=== PATIENT | female | born 1995 | race Caucasian/White ===

== ENCOUNTER 2024-03-22 13:53 | Outpatient (REF) | payer OTHER, SELFPAY ==
[2024-03-23 11:18] LABS: Bacterial Vaginosis PCR NEGATIVE (Negative); Candida Group PCR NOT DETECTED (Not Detect); Candida glab krusei PCR NOT DETECTED (Not Detect); Trichomonas vaginalis PCR NOT DETECTED (Not Detect)
[2024-03-23 11:47] LABS: CT PCR NOT DETECTED (Not Detect.); NG PCR NOT DETECTED (Not Detect.)
== END 2024-03-22 13:54 | disposition home or self-care (01) ==
LOC: HO.LAB 13:53
PROVIDERS: PCP Internal Medicine; Visit Provider Advanced Practice Midwife
DX: Z01.419 Encounter for gynecological examination (general) (routine) without abnormal findings (principal); N89.8 Other specified noninflammatory disorders of vagina; Z20.2 Contact with and (suspected) exposure to infections with a predominantly sexual mode of transmission
CPT/HCPCS: 0352U; 36415; 87491; 87591; 87625; 88175; 99385

== ENCOUNTER 2024-03-22 13:53 | Outpatient (AMB) | payer OTHER, SELFPAY ==
--- NOTE | 2024-03-22 14:10 | A.OFFVIS_ITS ---
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 Required: No Information Interpreted: clinical only Licensed Social Worker: Licensed Social Worker Present Allergies Sulfa (Sulfonamide Antibiotics) Allergy (Mild, Verified 03/22/24 14:12) Unknown Medication List - Last Reconciled 03/22/24 by Joyce Montez CNM budesonide-formoterol 80-4.5 mcg/actuation (Symbicort) 1 inh inhalation BID fluoxetine (Prozac) 20 mg PO DAILY montelukast (Singulair) 10 mg PO BEDTIME norgestimate-ethinyl estradiol 0.18/0.215/0.25 mg-25 mcg (Iia-Un-Rwlbxk) 1 tab PO DAILY quetiapine (Seroquel) 25 mg PO BEDTIME solifenacin 10 mg PO DAILY Is last menstrual period known: Yes Last menstrual period: 03/10/24 Do you need a note to return to daycare/school/sports/work: No HPI HPI New patient Annual: Details: 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 She moved from [place] a while back and is here to establish care she is 100% certain she never wants to have children she has dealt with a lot of issues with depression in her life and anxiety issues and she is in a good place now with her therapist psychiatrist and her meds have been stable for years but she is absolutely clear that she does not want to ever parent or bring these issues into a child's world and she is very very clear about this. She would like to remove all anxiety about getting and have permanent sterilization. She has considered all the alternatives and is 100% sure that she is not interested in any of them. She would like to find a doctor who would accommodate her needs for her. In the meantime she is on control pills and she is extremely fastidious about making sure she does not miss a pill and if she ever did get she would terminate it before became a fetus extremely quickly. 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 She hikes for exercise. She is in a long-term relationship for the last 5 years and has no worries about STDs but it does accept testing but does not feel she needs any of the blood work testing. She thought she had a Pap smear done but I am retrospect she thinks it was in 2019 and she did not hear about any positive results so she assumed negative. She has eczema and sometimes has some vaginal itching and wonders about eczema versus yeast. [facility] Medical History (Updated 03/22/24 @ 15:12 by Joyce Montez CNM) Overactive bladder Depression Anxiety Asthma Surgical History (Updated 03/22/24 @ 14:20 by Ariadna Gonzalez CMA) [place] teeth removed Social History (Updated 03/22/24 @ 14:21 by Ariadna Gonzalez CMA) Alcohol intake: current Alcohol intake frequency: holidays/special occasions only Patient Tobacco Use Status: Never used Tobacco Substance Use Type: Marijuana Female Reproductive History Menstrual Age of Menarche: 11 Duration of menses: 3-5 days Date of last menstrual period: 03/10/24 control method: pills Total pregnancies: 0 History of abnormal pap smear: No (2021,NEG.Per patient) Physical Exam Vital Signs: Last Vital Signs BP 106/60 03/22/24 14:11 BMI result Body Mass Index 27.5 Const General: healthy appearing, comfortable, no acute distress, well developed and alert Nutritional Appearance: average body habitus Orientation/consciousness: patient oriented x3 Limitations: no limitations HEENT Head: Yes normocephalic Neck Neck: Yes normal visual inspection Chest Chest palpation & inspection: normal inspection of the chest Breast/axilla inspection: normal inspection of the breasts and normal inspection of the axillae Breast/axilla palpation: normal palpation of the breasts and normal palpation of the axillae Resp Effort & Inspection: normal respiratory effort GI Inspection: Yes normal to inspection, No Abdominal wall edema and No distended Palpation (GI): Soft to palpation and nontender Other: External vulva pink healthy appearing mucus normal mucosa no lesions were abnormal discharge cervix nulliparous pink smooth healthy appearing cervix long close thick mobile nontender uterus midposition to anteverted mobile nontender adnexa nontender good tone with Kegel that is not appear to be a yeast infection or any other infection present today. General: Yes bladder normal to palpation External Female Exam: normal external appearance and normal appearance of the urethra Speculum Exam - Vagina: normal appearance of the vagina, normal palpation and normal vaginal discharge Speculum Exam - Cervix: normal appearance of the cervix, normal palpation and nontender Bimanual exam- vagina & uterus: normal bimanual exam, normal palpation, uterine size normal, bladder normal to palpation, consistency normal, normal palpation, uterine mobility normal, uterine shape normal, No Cervical tenderness present, non-tender and no cervical motion tenderness Bimanual Exam- Adnexa, other: normal adnexae, no masses, normal and No adnexal tenderness Neuro General: patient oriented x3 Assessment & Plan Assessment & Plan (1) Well woman exam with routine gynecological exam: Code(s): Z01.419 - Encounter for gynecological examination (general) (routine) without abnormal findings Category: Medical (2) Cervical cancer screening: Comment: Pap smear done 03/22/2024. Code(s): Z12.4 - Encounter for screening for malignant neoplasm of cervix Category: Medical (3) Encounter for screening examination for sexually transmitted disease: Code(s): Z11.3 - Encounter for screening for infections with a predominantly sexual mode of transmission Category: Medical (4) Counseling for control, oral contraceptives: Code(s): Z30.09 - Encounter for other general counseling and advice on contraception Category: Medical (5) History of vaginal pruritus: Comment: Rare yeast infections desires p.r.n. prescription for Monistat cream to have. 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 She moved from [place] a while back and is here to establish care she is 100% certain she never wants to have children she has dealt with a lot of issues with depression in her life and anxiety issues and she is in a good place now with her therapist psychiatrist and her meds have been stable for years but she is absolutely clear that she does not want to ever parent or bring these issues into a child's world and she is very very clear about this. She would like to remove all anxiety about getting and have permanent sterilization. She has considered all the alternatives and is 100% sure that she is not interested in any of them. She would like to find a doctor who would accommodate her needs for her. In the meantime she is on control pills and she is extremely fastidious about making sure she does not miss a pill and if she ever did get she would terminate it before became a fetus extremely quickly. 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 She hikes for exercise. She is in a long-term relationship for the last 5 years and has no worries about STDs but it does accept testing but does not feel she needs any of the blood work testing. She thought she had a Pap smear done but I am retrospect she thinks it was in 2019 and she did not hear about any positive results so she assumed negative. She has eczema and sometimes has some vaginal itching and wonders about eczema versus yeast. She could not find provider and was able to get her control pills renewed through the [facility] clinic at [facility] on [address] in [place] but she would gladly accept a refill on the prescription so that she can have enough and not run out. In the meantime she is 100% sure that she wants to never have a child so she is going to do her own homework I did let her know that when there are safer less risky alternatives the those are what is recommended for women 1st and I did discuss rates with her and the even having her tubes tied would not be 100% guarantee. She is however very clear so I recommend she see if she can find a provider either the [facility] system or perhaps [facility] system in the meantime I am refilling her prescription for her pills for year and I showed her her anatomy she has very healthy appearing vaginal mucosa that does not appear consistent with yeast but she would gladly accept prescription for use for p.r.n. in the future if she does get a yeast infection so I am sending that as well Pap smear done as well as testing for gonorrhea chlamydia trichomoniasis Gardnerella and Julianna. Reviewed her pill use and risks and danger signs. She is a nonsmoker. Medications: New norgestimate-ethinyl estradiol 0.18/0.215/0.25 mg-25 mcg (Olq-Iq-Feezrm) 1 tab PO DAILY 84 tabs 4RF miconazole nitrate 2% (Miconazole-7) 1 appful vaginal BEDTIME 7 days 45 grams 0RF Coding Level of Care Code New Pt Prev Care 18-39yr([id number] Diagnoses Well woman exam with routine gynecological exam Z01.419 Cervical cancer screening Z12.4 Encounter for screening examination for sexually transmitted disease Z11.3 Counseling for control, oral contraceptives Z30.09 History of vaginal pruritus Z87.42
[2024-03-22 14:11] VITALS: BP 106/60; BMI 27.5
== END 2024-03-22 16:00 | disposition home or self-care (01) ==
PROVIDERS: PCP Internal Medicine; Visit Provider Advanced Practice Midwife
DX: Z01.419 Encounter for gynecological examination (general) (routine) without abnormal findings (principal); Z12.4 Encounter for screening for malignant neoplasm of cervix; Z11.3 Encounter for screening for infections with a predominantly sexual mode of transmission; Z30.09 Encounter for other general counseling and advice on contraception; Z87.42 Personal history of other diseases of the female genital tract
CPT/HCPCS: 99385